=== PATIENT | male | born 1980 | race Caucasian/White ===

== ENCOUNTER 2023-03-30 04:45 | Emergency (ER) | payer SELFPAY ==
[2023-03-30 04:48] VITALS: BP 168/101; PULSE 96; RESP 16; TEMP 36.6; O2SAT 96
[2023-03-30] MEDS: Amoxicillin 875/Clav. 125 TAB PO (05:08)
[2023-03-30] MEDS: Ketorolac 15 MG/ML VIAL IM (05:08)
[2023-03-30 05:09] VITALS: BP 168/101; PULSE 96; RESP 16; TEMP 36.6; O2SAT 96
--- NOTE | 2023-03-30 05:10 | ED.GENADUL_ITS ---
Discharge Plan Disposition Patient Disposition: Home Condition: Improving Discharge Details Clinical Impression: Dental infection Primary Care Provider: Unknown,Unknown ED Provider: Medardo Martines Home Meds and New Rx's Prescriptions: New amoxicillin-pot clavulanate 875-125 mg tablet 1 tab PO BID 7 Days Qty: 14 0RF No Action ibuprofen [Advil Liqui-Gel] 200 MG capsule 600 cap PO PRN PRN Discharge Instructions Instructions: Toothache (ED) Additional Instructions: Please take medication as prescribed. Please follow-up closely with dentist. Return to the emergency department for any worsening symptoms Medical Decision Making 42-year-old male presents with left lower molar dental infection, patient has induration and edema to mandibular region on the left, tongue secretions normal voice, no submental or sublingual induration, no erythema or warmth to face. Neurologically intact. Hemodynamically stable. Hypertension likely related to discomfort. We will start empiric Augmentin and Toradol. Low suspicion for deep space infection of head or neck at this time. Trial of outpatient oral antibiotics with strict return precautions. Patient is seeking dental follow-up in the coming days. HPI General Date/Time Provider Initiated Documentation: 03/30/23 04:59 . HPI Narrative: 42-year-old male presents with left shoulder discomfort in the setting of dental infection. Denies trouble swallowing or speaking. Denies fevers or chills. Is currently seeking dental follow-up Related Data Home Medications Medication Instructions Recorded Confirmed ibuprofen 200 mg capsule (Advil 600 cap PO PRN PRN 11/13/15 03/30/23 Liqui-Gel) amoxicillin 875 mg-potassium 1 tab PO BID 7 days #14 tabs 03/30/23 clavulanate 125 mg tablet Previous Rx's Medication Instructions Recorded amoxicillin 875 mg-potassium 1 tab PO BID 7 days #14 tabs 03/30/23 clavulanate 125 mg tablet Allergies Allergy/AdvReac Type Severity Reaction Status Date / Time No Known Allergies Allergy Unverified 12/25/17 17:34 General Stated Complaint: DentalOral RICARDO: 4 Review of Systems Narrative: Review of Systems Constitutional: negative Eyes: negative ENT: Dental infection Cardiovascular: negative Respiratory: negative Gastrointestinal: negative : negative Musculoskeletal: negative Skin: negative Neurologic: negative Psych: negative PFSH All Active Problems (Updated 03/30/23 @ 05:14 by Medardo Martines MD) Dental infection (Acute) Fx up radius NEC/NOS-closed (Acute 12/31/12) Rupture of tendon of hand (Acute 02/20/13) EXTENSOR-POLLICIS LONGUS TENDON RIGHT WRIST Surgical History (Updated 02/20/13 @ 14:11 by Bonnie Rothman) Tendon Transplant or Transfer (02/05/13) DR. RUIZ:RIGHT WRIST Fracture, Open Treatment (12/17/12) SARA FRITZ; RIGHT DISTAL RADIUS Social History Smoking/Tobacco Use Status: Current every day Tobacco Type: cigarettes Smoking risk assessment performed?: Yes Alcohol Intake: never Drug use: Never Do you feel safe in your relationship?: Yes Exam Narrative Exam Narrative: Physical Examination General: alert, awake, cooperative, resting comfortably, no acute distress HEENT: normocephalic, atraumatic; PERRL, EOM intact, conjunctiva normal; no nasal discharge; moist mucous membranes, oral and pharyngeal mucosa normal, tolerating secretions; induration and edema to mandibular region left, multiple carious teeth specifically left lower molar, soft submental and sublingual space; normal voice tolerating secretions Neck: supple, trachea midline; full ROM Chest: normal to inspection Respiratory: normal respiratory effort, speaking in full sentences Neuro: AAOx3, normal speech, moving all extremities Psych: Appropriate mood and affect Course Vital Signs Vital signs: Vital Signs Temperature 36.6 C 03/30/23 04:48 Pulse 96 H 03/30/23 04:48 Respiratory Rate 16 03/30/23 04:48 Blood Pressure 168/101 H 03/30/23 04:48 Pulse Oximetry 96 03/30/23 04:48 Temperature 36.6 C 03/30/23 05:09 Temperature Source Oral 03/30/23 05:09 Pulse 96 H 03/30/23 05:09 Respiratory Rate 16 03/30/23 05:09 Respiratory Effort Normal 03/30/23 04:52 Blood Pressure 168/101 H 03/30/23 05:09 Blood Pressure Position Sitting 03/30/23 04:48 Pulse Oximetry 96 03/30/23 05:09 Oxygen Delivery Method Room Air 03/30/23 05:09 Oxygen Flow Rate 0 03/30/23 04:48 Pain Level 2 03/30/23 05:09
== END 2023-03-30 05:18 | disposition home or self-care (01) ==
PROVIDERS: Emergency Provider Emergency Medicine
DX: K04.7 Periapical abscess without sinus (principal)
CPT/HCPCS: 96372; 99283; 99284; J1885